=== PATIENT | male | born 1990 | race Caucasian/White ===

== ENCOUNTER 2017-01-25 11:18 | Emergency (ER) | payer OTHER ==
[~2017-01-25] VITALS: Ht 170.2 cm; Wt 74.8 kg
[2017-01-25 11:25] VITALS: BP 147/97
== END 2017-01-25 11:56 | disposition home or self-care (01) ==
LOC: EDBD 11:20 → ER 11:20
DX: R53.83 Other fatigue (principal)
CPT/HCPCS: A4606; Z7610